=== PATIENT | female | born 1955 | race Caucasian/White ===

== ENCOUNTER 2024-04-11 08:07 | Day surgery (SDC) | payer MEDICARE ==
[~2024-04-11 08:07] MED LIST: Metoclopramide 10 MG/2 ML SDV IV PRN; Sodium Chloride 0.9% 1,000 ML IV SCH
[2024-04-11] MEDS: Sodium Chloride 0.9% 1,000 ML IV SCH (08:39)
[2024-04-11] MEDS ORDERED: Propofol 200 MG/20 ML SDV ONE (09:45)
[2024-04-11] MEDS: Metoclopramide 10 MG/2 ML SDV IVPUSH ONE (16:03)
== END 2024-04-11 12:08 | disposition home or self-care (01) ==
LOC: LB.SDS 08:07
PROVIDERS: ATTEND Surgery
DX: K29.50 Unspecified chronic gastritis without bleeding (principal); K31.89 Other diseases of stomach and duodenum; K44.9 Diaphragmatic hernia without obstruction or gangrene; I10 Essential (primary) hypertension; F17.200 Nicotine dependence, unspecified, uncomplicated
CPT/HCPCS: 43239; 45380; J2704; J7030; 88305; 88342